=== PATIENT | female | born 1970 | race Caucasian/White ===

== ENCOUNTER 2016-11-29 09:34 | Emergency (ER) | payer OTHER ==
[~2016-11-29] VITALS: Ht 154.9 cm; Wt 61.2 kg
[~2016-11-29 09:34] MED LIST: KEPPRA500 MG PO
[2016-11-29 10:45] LABS: HEMATOCRIT 43.2 % (36.0-46.0); MCH 29.2 PG (29.0-34.0); MCHC 33.1 G/DL (30.0-36.0); MCV 88.2 FL (83-99); MEAN PLAT.VOLUME 9.7 uM^3 (9.5-12.4); PLATELET COUNT 283 K/uL (156-360); RBC DIS.WIDTH-CV 12.6 % (11.8-14.6); RBC DIS.WIDTH-SD 40.7 % (39-53); WHITE BLOOD COUNT 10.2 K/uL (4.1-10.2)
[2016-11-29 10:57] LABS: CHLORIDE 105 mEq/L (99-109); POTASSIUM 4.1 mEq/L (3.7-5.4); SODIUM 140 mEq/L (136-147)
[2016-11-29 10:59] LABS: GLUCOSE 140 mg/dL (70-99)
[2016-11-29 11:00] LABS: ANION GAP 12 MEQ/L (2-14)
[2016-11-29 11:01] LABS: TOTAL BILIRUBIN 0.7 mg/dL (0.0-1.0)
[2016-11-29 11:03] LABS: ALKALINE PHOSPHATASE 61 IU/L (3-129); GFR ESTIMATE (CALCULATED) > 59 mL/min/
[2016-11-29 11:04] LABS: UREA NITROGEN (BUN) 13 mg/dL (9-23)
[2016-11-29 11:06] LABS: LIPASE 25 U/L (1.0-51.0)
[2016-11-29 11:12] LABS: QUANTITATIVE HCG < 4.0 MIU/ML
[2016-11-29 14:08] LABS: POINT-OF-CARE METER ID UU14100415
[2016-11-29 14:27] LABS: TROP-I INTERPRETATION NEGATIVE; TROPONIN-I < 0.01 ng/mL (0.0-0.30)
[2016-11-29 15:51] LABS: ADD MIUA? YES; BILIRUBIN NEGATIVE; BLOOD SMALL; COLOR YELLOW ((YELLOW)); GLUCOSE (STRIP) 50; KETONES 20; LEUKOCYTES NEGATIVE; NITRITE NEGATIVE; PROTEIN (STRIP) 100; UROBILINOGEN 0.2 MG/DL (0.2-1.0)
[2016-11-29 16:16] LABS: BACTERIA RARE /HPF; EPITHELIAL CELLS RARE /HPF; HYALINE CASTS 15-20 /LPF; MUCUS 2+ /LPF; RED BLOOD CELLS 0-5 /HPF (0-5); UCUL ADDED? NO; WHITE BLOOD CELLS 0-5 /HPF (0-5)
[2016-11-29] MEDS ORDERED: ZOFRAN4 MG PO (17:14)
[2016-11-29] MEDS ORDERED: FLEXERIL10 MG PO (17:14)
[2016-11-29] MEDS ORDERED: LIDOCAINE700 MG TD (17:14)
[2016-11-29 17:31] VITALS: BP 156/78
== END 2016-11-29 17:43 | disposition home or self-care (01) ==
LOC: EME 09:34
PROVIDERS: Emergency Medicine
DX: R10.10 Upper abdominal pain, unspecified (principal); M54.5 Low back pain; G40.909 Epilepsy, unspecified, not intractable, without status epilepticus; E11.9 Type 2 diabetes mellitus without complications
CPT/HCPCS: 74176; 80053; 81003; 82948; 83690; 84484; 84702; 85027; 93005; 99281; 99285; J1885; J2060; J2270; J2405; J7030

== ENCOUNTER 2016-12-01 02:19 | Observation (INO) | payer OTHER ==
[~2016-12-01] VITALS: Ht 154.9 cm; Wt 65.1 kg
[~2016-12-01 02:19] MED LIST changes: +FLEXERIL10 MG PO; +LIDOCAINE700 MG TD; +ZOFRAN4 MG PO
[2016-12-01 03:56] LABS: EOSINOPHIL (%) 0.2 % (0-5); HEMATOCRIT 37.7 % (36.0-46.0); IMMATURE GRANULOCYTE (%) 0.6 % (0.0-0.7); IMMATURE GRANULOCYTE COUNT 0.1 K/uL; INSTRUMENT ABS NEUTROPHIL CT 9.6 K/uL; LYMPHOCYTE COUNT 3.2 K/uL (1.0-2.8); MCHC 32.9 G/DL (30.0-36.0); MCV 88.3 FL (83-99); MEAN PLAT.VOLUME 9.9 uM^3 (9.5-12.4); MONOCYTE (%) 8.6 % (3-12); MONOCYTE COUNT 1.2 K/uL (0-0.8); NEUTROPHIL (%) 67.9 % (45-76); NEUTROPHIL COUNT 9.6 K/uL (1.8-6.4); PLATELET COUNT 254 K/uL (156-360); RBC DIS.WIDTH-CV 12.7 % (11.8-14.6); RBC DIS.WIDTH-SD 41.2 % (39-53); RED BLOOD COUNT 4.27 M/uL (3.80-5.20); WHITE BLOOD COUNT 14.1 K/uL (4.1-10.2)
[2016-12-01 04:08] LABS: CHLORIDE 107 mEq/L (99-109); POTASSIUM 3.7 mEq/L (3.7-5.4); SODIUM 141 mEq/L (136-147)
[2016-12-01 04:10] LABS: GLUCOSE 123 mg/dL (70-99)
[2016-12-01 04:11] LABS: ANION GAP 11 MEQ/L (2-14)
[2016-12-01 04:12] LABS: TOTAL BILIRUBIN 0.6 mg/dL (0.0-1.0)
[2016-12-01 04:13] LABS: ALKALINE PHOSPHATASE 55 IU/L (3-129)
[2016-12-01 04:14] LABS: ADD MIUA? YES; BILIRUBIN NEGATIVE; BLOOD MODERATE; COLOR YELLOW ((YELLOW)); GLUCOSE (STRIP) NEGATIVE; KETONES 20; LEUKOCYTES NEGATIVE; NITRITE NEGATIVE; PROTEIN (STRIP) 100; UROBILINOGEN 0.2 MG/DL (0.2-1.0)
[2016-12-01 04:14] LABS: GFR ESTIMATE (CALCULATED) > 59 mL/min/
[2016-12-01 04:15] LABS: UREA NITROGEN (BUN) 18 mg/dL (9-23)
[2016-12-01 04:17] LABS: LIPASE 24 U/L (1.0-51.0)
[2016-12-01 04:29] LABS: BACTERIA NONE SEEN /HPF; EPITHELIAL CELLS 1+ /HPF; MUCUS 1+ /LPF; RED BLOOD CELLS 0-5 /HPF (0-5); UCUL ADDED? NO; WHITE BLOOD CELLS 0-5 /HPF (0-5)
[2016-12-01 04:48] LABS: CREATINE KINASE 1375 IU/L (1-294)
[2016-12-01] MEDS ORDERED: METFORMIN HCL500 M4 PO (05:17)
[2016-12-01] MEDS ORDERED: HYDROCODON-ACE1 EAC8 PO (05:18)
[2016-12-01 08:15] LABS: TROP-I INTERPRETATION NEGATIVE; TROPONIN-I < 0.01 ng/mL (0.0-0.30)
[2016-12-01 08:37] VITALS: BP 108/63
[2016-12-01 09:06] LABS: POINT-OF-CARE METER ID UU13113831
[2016-12-01] MEDS ORDERED: NAPROXEN500 MG PO (11:49)
[2016-12-01 12:16] VITALS: BP 112/62
[2016-12-01 12:53] LABS: POINT-OF-CARE METER ID UU13113831
[2016-12-01] MEDS ORDERED: ZOFRAN4 MG PO (13:11)
[2016-12-01] MEDS ORDERED: METFORMIN HCL500 M1 PO (13:12)
[2016-12-01 15:44] VITALS: BP 184/86
[2016-12-01 17:29] LABS: POINT-OF-CARE METER ID UU14162513
[2016-12-01 19:22] VITALS: BP 190/89
[2016-12-01 23:08] LABS: POINT-OF-CARE METER ID UU14162513
[2016-12-02 00:22] VITALS: BP 180/86
[2016-12-02 04:50] VITALS: BP 160/78
[2016-12-02 05:51] LABS: BASOPHIL COUNT 0.1 K/uL (0-0.1); EOSINOPHIL (%) 0.5 % (0-5); EOSINOPHIL COUNT 0.1 K/uL (0-0.3); IMMATURE GRANULOCYTE (%) 0.6 % (0.0-0.7); IMMATURE GRANULOCYTE COUNT 0.1 K/uL; INSTRUMENT ABS NEUTROPHIL CT 9.3 K/uL; LYMPHOCYTE COUNT 3.8 K/uL (1.0-2.8); MCH 29.2 PG (29.0-34.0); MCHC 32.8 G/DL (30.0-36.0); MEAN PLAT.VOLUME 10.2 uM^3 (9.5-12.4); MONOCYTE (%) 9.2 % (3-12); MONOCYTE COUNT 1.4 K/uL (0-0.8); NEUTROPHIL (%) 63.4 % (45-76); NEUTROPHIL COUNT 9.3 K/uL (1.8-6.4); PLATELET COUNT 250 K/uL (156-360); RBC DIS.WIDTH-CV 12.5 % (11.8-14.6); RBC DIS.WIDTH-SD 41.5 % (39-53); RED BLOOD COUNT 4.38 M/uL (3.80-5.20); WHITE BLOOD COUNT 14.7 K/uL (4.1-10.2)
[2016-12-02 06:14] LABS: ALKALINE PHOSPHATASE 53 IU/L (3-129); ANION GAP 9 MEQ/L (2-14); CHLORIDE 109 MEQ/L (99-109); DIRECT BILIRUBIN 0.1 mg/dL (0.0-0.3); GFR ESTIMATE (CALCULATED) > 59 mL/min/; GLUCOSE 102 mg/dL (70-99); LIPASE 26 U/L (1.0-51.0); SAMPLE HEMOLYSIS CHECK 0; SAMPLE ICTERIC CHECK 0; SAMPLE LIPEMIA CHECK 0; SODIUM 139 MEQ/L (136-147); TOTAL BILIRUBIN 0.7 MG/DL (0.0-1.0); UREA NITROGEN (BUN) 14 mg/dL (9-23)
[2016-12-02 06:26] LABS: TROP-I INTERPRETATION NEGATIVE; TROPONIN-I < 0.01 ng/mL (0.0-0.30)
[2016-12-02 07:20] LABS: Estimated Average Glucose 111 mg/dL (70-123)
[2016-12-02 07:47] LABS: HEMOGLOBIN A1c (GLYCOHEMOGLOB) 5.5 % HGB (Below 5.7)
[2016-12-02 14:15] LABS: CHLAMYDIA TRACHOMATIS NEGATIVE; NEISSERIA GONORRHOEAE NEGATIVE
== END 2016-12-02 08:24 | disposition left against medical advice (07) ==
LOC: EME 02:19 → EDOF 06:51 → 5WEST 08:20
PROVIDERS: Emergency Medicine; Family Medicine; Hospitalist
DX: M62.82 Rhabdomyolysis (principal); R10.9 Unspecified abdominal pain; R11.10 Vomiting, unspecified; G40.909 Epilepsy, unspecified, not intractable, without status epilepticus; D50.9 Iron deficiency anemia, unspecified; D72.829 Elevated white blood cell count, unspecified; E11.9 Type 2 diabetes mellitus without complications
CPT/HCPCS: 71010; 80048; 80053; 80076; 81003; 82550; 82948; 83036; 83605; 83690; 84484; 85025; 87491; 87591; 99281; 99285; G0378; J0696; J1200; J1644; J2270; J2405; J2765; J3480; J7030; J7050; S0028